=== PATIENT | female | born 1945 | race Caucasian/White ===

== ENCOUNTER → 2017-03-06 | Outpatient (CLI) | payer MEDICARE, OTHER ==
[~2017-03-06] MED LIST: CERTAGEN PO; FISH OIL 1,0001 CAP PO; VIT E PO; ZOCOR PO; ZOLOFT PO
--- NOTE | ~2017-03-06 | US116 ---
[facility] A Service of [facility] & [facility] RADIOLOGY TEXT RESULTS PATIENT: LAY HERNANDEZ LOCATION: [facility]US : 49 UNIT #: [id number] AGE: [address]: Cheikh Dean MD SEX: F ORDER DR: [id number] [address] [address] [id number] O MR#: [id number] Acc #: [id number] NAME: LAY HERNANDEZ : 1945 SEX: F STUDY DATE/TIME: 03/06/2017 13:03 UNIT: [facility] ROOM: STUDY DESCRIPTION: US Soft Tissue Head/Neck Attending Physician: Cheikh Dean M.D. Referring Physician: Cheikh Dean M.D. Ordering Physician: Cheikh Dean M.D. Primary Care Physician: Deidra Gaspar M.D. MEDICAL IMAGING REPORT This report is preliminary unless electronic signature is present. EXAM Right parotid ultrasound, 03/06/2017 HISTORY Right parotid mass for 3 years. History of lung cancer. COMPARISON Right parotid ultrasound, 03/27/2016. FINDINGS A hypoechoic solid macrolobulated mass lesion is demonstrated within the right parotid gland. It measures 2.4 x 1.4 x 3.5 cm and demonstrates internal vascularity on color Doppler imaging. It is located within the superficial margin of the parotid gland. On the previous 03/27/2016 examination it measured 3.1 x 1.5 x 1.9 cm. On a more remote parotid ultrasound from 03/11/2014 it measured 3.0 x 1.1 x 2.0 cm. No additional thyroid nodules are identified. IMPRESSION Approximately 3.5 cm superficial right parotid mass has slowly enlarged, compared to maximal measurement of 3.1 cm in 2015 and 3.0 cm in 2013. Ultrasound-guided fine needle aspiration recommended. Dictated by... Rosalba Lopez M.D. THIS IS AN ELECTRONICALLY VERIFIED REPORT Rosalba Lopez M.D. at 03/10/2017 9:51 AM APOLINAR/abigail TD: 03/09/2017 12:28 [facility] A Service of [facility] & [facility] RADIOLOGY TEXT RESULTS PATIENT: LAY HERNANDEZ LOCATION: [facility] #: [id number] : [birth year] UNIT #: [id number] AGE: [address]: Cheikh Dean MD SEX: F ORDER DR: JOB #: [id number] MEDICAL IMAGING REPORT Page 1 of 1
== END | disposition home or self-care (01) ==
LOC: SGUS 12:50
DX: K11.8 Other diseases of salivary glands (principal); F17.210 Nicotine dependence, cigarettes, uncomplicated
CPT/HCPCS: 76536; G0297